=== PATIENT | female | born 1980 | race Hispanic/Latino ===

== ENCOUNTER 2023-03-06 18:38 | Emergency (ER) | payer BC ==
[~2023-03-06] VITALS: Ht 157.5 cm; Wt 118.4 kg
[2023-03-06 18:49] VITALS: BP 133/76; PULSE 86; RESP 20
[2023-03-06] MEDS ORDERED: DICL25TA11 PO (20:04)
== END 2023-03-06 21:02 | disposition home or self-care (01) ==
LOC: EDH 18:38
DX: S92.501A Displaced unspecified fracture of right lesser toe(s), initial encounter for closed fracture (principal); E11.9 Type 2 diabetes mellitus without complications; E78.00 Pure hypercholesterolemia, unspecified; Z90.49 Acquired absence of other specified parts of digestive tract; W18.39XA Other fall on same level, initial encounter; Y93.89 Activity, other specified; Y92.89 Other specified places as the place of occurrence of the external cause; Y99.8 Other external cause status
CPT/HCPCS: 73660